=== PATIENT | female | born 2005 | race Two or more races ===

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

== ENCOUNTER 2023-07-09 18:32 | Emergency (ER) | payer MEDICAID ==
[~2023-07-09] VITALS: Ht 154.9 cm; Wt 62.4 kg
[~2023-07-09 18:32] MED LIST changes: +AZIT-81 PO; +LIDO2SOL26 MT
[2023-07-09 19:01] VITALS: BP 127/86; PULSE 77; RESP 16; TEMP 97.2; O2SAT 99
[2023-07-09 20:13] LABS: Basophils # (auto) 0.1 10 ^3/uL (0-0.2); Basophils % (auto) 0.8 % (0.0-2.0); Eosinophils # (auto) 0.2 10 ^3/uL (0-0.8); Hematocrit 43.2 % (36.0-46.0); Hemoglobin 14.5 g/dL (12.2-16.2); Lymphocytes # (auto) 1.7 10 ^3/uL (0.4-5.4); Lymphocytes % (auto) 21.3 % (10.0-50.0); Mean Corpuscular Hemoglobin 29.6 pg (28.0-32.0); Mean Corpuscular Hgb Conc. 33.7 g/dL (32.0-36.0); Monocytes # (auto) 0.6 10 ^3/uL (0-1.3); Monocytes % (auto) 7.8 % (0.0-12.0); Neutrophils # (auto) 5.3 10 ^3/uL (1.6-8.6); Neutrophils % (auto) 68.1 % (37.0-80.0); Nucleated Red Blood Cells % 0.1 %; Red Blood Cells 4.91 10^6/uL (4.0-5.20); Red Cell Distribution Width 13.8 % (11.8-14.3); White Blood Cell 7.8 10^3/uL (4.4-10.8)
[2023-07-09] MEDS ORDERED: ACETAMINOPHEN 500 MG TAB PO ONE (20:15)
[2023-07-09] MEDS ORDERED: KETOROLAC TROMETH 60MG/2ML VIAL IM ONE (20:15)
[2023-07-09 20:22] LABS: Alanine Aminotransferase 12 U/L (7-40); Albumin 4.8 g/dL (3.2-4.8); Alkaline Phosphatase 70 U/L (46-116); Anion Gap 8 (5-15); Aspartate Aminotransferase 16 U/L (13-40); Calcium 9.2 mg/dL (8.7-10.4); Carbon Dioxide 25 mmol/L (20-30); Chloride 106 mmol/L (98-107); Glucose 83 mg/dL (74-106); Potassium 3.5 mmol/L (3.5-5.1); Sodium 139 mmol/L (136-145)
[2023-07-09 20:23] LABS: Total Protein 7.6 g/dL (5.7-8.2)
[2023-07-09 20:25] LABS: BUN/Creatinine Ratio 6.6 (10.0-20.0); Blood Urea Nitrogen < 5 mg/dL (9-23)
== END 2023-07-09 20:40 | disposition home or self-care (01) ==
LOC: ER 18:32
DX: R51.9 Headache, unspecified (principal); F17.210 Nicotine dependence, cigarettes, uncomplicated; F12.10 Cannabis abuse, uncomplicated
CPT/HCPCS: 36415; 80053; 85025; 96372; 99283; J1885

== ENCOUNTER 2024-09-08 18:50 | Emergency (ER) | payer MEDICAID ==
[~2024-09-08] VITALS: Ht 154.9 cm; Wt 72.1 kg
[~2024-09-08 18:50] MED LIST changes: +AZIT-185 PO; -AZIT-81 PO
[2024-09-08 20:17] VITALS: BP 120/80; PULSE 72; RESP 16; TEMP 97.8; O2SAT 99
[2024-09-08] MEDS ORDERED: ERY05OO OP (20:21)
--- NOTE | 2024-09-08 20:21 | ED.PDOC ---
Eye-HPI HPI Comments This is a 19-year-old female presents to the ED chief complaint left eye i rritation. Patient states around 2 hours ago she awoke with left eye irritation and a feeling of a bump under left eyelid. She reports no pain. Denies vision changes denies itchiness, fever, chills and drainage. Chief Complaint: Eye Problem Time Seen by MD: 19:03 Primary Care Provider: Dr. Mendoza Reviewed Notes: Nurses Notes, Medications, Allergies Allergies: Coded Allergies: NO KNOWN ALLERGIES (Unverified , 09/23/16) Home Meds Active Scripts Erythromycin (Erythromycin) 5 Mg/Gm Oin, 1 MG OP TID for 7 Days, #3.5 GRAMS Apply 1 cm ribbon under left eyelid 3 times daily x7 days Prov:DAWNA GRIER 09/08/24 Lidocaine HCl (Mouth-Throat) (Lidocaine HCl Viscous) 2 % Madisyn, 5 ML MT TID, #100 ML Prov:SABINE HALEY 12/13/22 Azithromycin (ZITHROMAX TABLET) 250 Mg Tb, 250 MG PO DAILY, #6 TAB Prov:SABINE HALEY 12/13/22 Cephalexin ( Keflex 500) 500 Mg Cap, 1 CAP PO QID for 5 Days, #20 CAP 0 Refills Prov:SOFIA ESQUIVEL 07/24/22 Information Source: Patient Mode of Arrival: Ambulatory Past Medical History PAST MEDICAL HISTORY: Denies Surgical History: Denies all surgeries BUSINESS OFFICE TECHNOLOGY INSTRUCTOR History: No Pertinent BUSINESS OFFICE TECHNOLOGY INSTRUCTOR History Family History Family History: Reviewed,noncontributory to illness Social History Smoker: Cigarettes Alcohol: Occasionally Drugs: Marijuana Lives In: Home Constitutional: denies: chills, diaphoresis, fatigue, fever, malaise, sweats, weakness, others EENTM: reports: others (Left eye irritation and bump under eyelid); denies: blurred vision, double vision, ear bleeding, ear discharge, ear drainage, ear pain, ear ringing, eye pain, eye redness, hearing loss, mouth pain, mouth swelling, nasal discharge, nose bleeding, nose congestion, nose pain, photophobia, tearing, throat pain, throat swelling, voice changes Respiratory: denies: cough, hemoptysis, orthopnea, SOB at rest, shortness of breath, SOB with excertion, stridor, wheezing, others Cardiovascular: denies: chest pain, dizzy spells, diaphoresis, Dyspnea on exertion, edema, irregular heart beat, left arm pain, lightheadedness, palpitations, PND, syncope, others Gastrointestinal: denies: abdomen distended, abdominal pain, blood streaked bowels, constipated, diarrhea, dysphagia, difficulty swallowing, hematemesis, melena, nausea, poor appetite, poor fluid intake, rectal bleeding, rectal pain, vomiting, others Genitourinary: denies: abnormal vagina bleeding, burning, dyspareunia, dysuria, flank pain, frequency, hematuria, incontinence, pain, , vagina disc harge, urgency, others Neurological: denies: dizziness, fainting, headache, left sided numbness, left sided weakness, numbness, paresthesia, pre-existing deficit, right sided numbness, right sided weakness, seizure, speech problems, tingling, tremors, weakness, others Musculoskeletal: denies: back pain, gout, joint pain, joint swelling, muscle pain, muscle stiffness, neck pain, others Integumetry: denies: bruises, change in color, change in hair/nails, dryness, laceration, lesions, lumps, rash, wounds, others Allergic/Immunocompromised: denies: Difficulty Healing, Frequent Infections, Hives, Itching, others Hematologic/Lymphatic: denies: anemia, blood clots, easy bleeding, easy bruising, swollen glands, others Endocrine: denies: excessive hunger, excessive sweating, excessive thirst, excessive urination, flushing, intolerance to cold, intolerance to heat, unexplained weight gain, unexplained weight loss, others Psychiatric: denies: anxiety, bipolar disorder, depression, hopeless, panic disorder, schizophrenia, sleepless, suicidal, others Physical Exam General Appearance: No Apparent Distress, Normal HEENT: Pharynx Normal, TMs Normal, Other (Left lower lateral eyelid noted bhavani size hordeolum without drainage. Conjunctiva normal.) Neck: Full Range of Motion, Non-Tender, Normal, Normal Inspection Respiratory: Lungs Clear, No Respiratory Distress, Normal Breath Sounds Cardiovascular: No Murmur, Normal Peripheral Pulses, Regular Rate/Rhythm Breast Exam: Deferred Gastrointestinal: Non Tender, Soft Genitalia: Deferred Pelvic: Deferred Rectal: Deferred Extremities: Normal capillary refill, Normal inspection, Normal range of motion Musculoskeletal : Apperance: Normal Neurologic: Alert, systems analyst II-XII nml as Tested, No Motor Deficits, Normal Affect, Normal Mood, No Sensory Deficits Cerebellar Function: Normal Reflexes: Normal Skin: Dry, Normal Color, Warm Lymphatic: No Adenopathy Was a procedure done? Was a procedure done?: No EENT DIFF Eye: Chalazion, Conjunctivitis, Bacterial X-Ray, Labs, Meds, VS Vital Signs Date Time Temp Pulse Resp B/P (MAP) Pulse Ox O2 Delivery O2 Flow Rate FiO2 09/08/24 20:17 72 16 99 Room Air 09/08/24 20:17 97.8 72 16 120/80 (93) 99 97.8 09/08/24 20:04 97.8 72 16 120/80 (93) 99 X-Ray, Labs, Meds, VS Comment Likely hordeolum internal. We will start patient on erythromycin and warm compresses 3 times a day advised not to pop it if comes to a head let drain. Advised to follow up with her PCP as necessary within 2-3 days. ER return precautions given. Patient indicated understanding. Patient agrees with discharge plan of care. Time of 1ST Reevaluation: 20:31 Reevaluation 1ST: Unchanged Patient Education/Counseling: Diagnosis, Treatment, Prognosis, Need For Follow Up Family Education/Counseling: No Family Present Departure 1 Departure Time of Disposition: 20:31 Impression: Primary Impression: Internal hordeolum of left eye Qualified Codes: H00.025 - Hordeolum internum left lower eyelid Disposition: HOME / SELF CARE / HOMELESS Condition: Stable e-Prescriptions Erythromycin (Erythromycin) 5 Mg/Gm Oin 1 MG OP TID for 7 Days, #3.5 GRAMS Apply 1 cm ribbon under left eyelid 3 times daily x7 days Prov: DAWNA GRIER 09/08/24 Discharged With: Self Critical Care Note Critical Care Time?: No Stability Stability form required: DAWNA Alfred Sep 08, 2024 20:21
== END 2024-09-08 20:25 | disposition home or self-care (01) ==
LOC: ER 18:50
DX: H00.025 Hordeolum internum left lower eyelid (principal); F17.210 Nicotine dependence, cigarettes, uncomplicated; F15.90 Other stimulant use, unspecified, uncomplicated; Z79.899 Other long term (current) drug therapy